=== PATIENT | female | born 1965 | race Caucasian/White ===

== ENCOUNTER 2021-10-13 08:50 | Emergency (ER) | payer OTHER ==
[~2021-10-13] VITALS: Ht 170 cm; Wt 72.0 kg
--- NOTE | 2021-10-13 09:38 | ED Cough/URI ---
General Chief Complaint: COVID19 Suspect/Confirmed Stated Complaint: COUGH,FEVER Exam Limitations: no limitations (ISRAEL ARROYO STUDENT) Source: patient (ABRAHAM SCHULER MD) History of Present Illness Date Seen by Provider: Oct 13, 2021 Time Seen by Provider: 09:30 Initial Comments Patient is a 56yoF who presents with chief complaint of body aches, sore throat, mild headache, cough with pain and phlegm, and decreased appetite. She began feeling bad on Tuesday and felt like she had a mild fever that evening but not since then. She is afebrile in ED today. Patient denies congestion, SOA, N/V and diarrhea. She does not like taking medication and hasn't taken anything OTC. She is able to sleep well, keep liquids down but has not had much of an appetite. Vaccinated for Covid over a year ago and has not had booster. Patient says Covid infection has been going around work. She is a former smoker and quit >10 years ago. She previously was medicated for HTN but hasn't taken any medicine for 4-5 years and her PCP retired 3 years ago. She is hypertensive today 160s/140s and expressed interest in establishing with new PCP. Timing/Duration: constant Severity/Quality: mild Associated Symptoms: chest pain/soreness, cough, headache, muscle aches, sore throat (ISRAEL ARROYO STUDENT) Allergies and Home Medications Allergies Coded Allergies: No Known Drug Allergies (Unverified , 10/13/21) Patient Home Medication List Home Medication List Reviewed: Yes (ABRAHAM SCHULER MD) Atenolol (Atenolol) 25 Mg Tablet, 25 MG PO DAILY Prescribed by: ABRAHAM SCHULER on 10/13/21 7693 Review of Systems Review of Systems Constitutional: No chills, No diaphoresis, No fever; malaise EENTM: throat pain; No blurred vision, No nose congestion Respiratory: cough; No hemoptysis; phlegm; No wheezing Cardiovascular: No chest pain, No edema, No palpitations Gastrointestinal: No abdominal pain, No constipation, No diarrhea; loss of appetite; No melena, No nausea, No vomiting Genitourinary: No dysuria, No frequency, No hematuria Musculoskeletal: No joint pain; muscle pain; No muscle weakness Skin: no symptoms reported Psychiatric/Neurological: No Symptoms Reported Hematologic/Lymphatic: No Symptoms Reported Immunological/Allergic: no symptoms reported ([employer]) Past Sddwxrb-Ypfvik-Hlomni Hx Patient Social History Tobacco Use?: No Smoking Status: Former Smoker Use of E-Cig and/or Vaping dev: No Substance use?: No Alcohol Use?: No ([employer]) Immunizations Up To Date Influenza Vaccine Up-to-Date: Yes; Up-to-Date ([employer]) Past Medical History Surgeries: No ([employer]) Physical Exam Vital Signs - First Documented 10/13/21 09:00 Temp 36.9 Pulse 96 Resp 16 B/P (MAP) 194/145 (161) Pulse Ox 98 O2 Delivery Room Air (ABRAHAM SCHULER MD) Capillary Refill : ([employer]) Height: '" Weight: lbs. oz. 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, no motor/sensory deficits, alert, normal mood/affect, oriented x 3 Skin: normal color, warm/dry Lymphatic: no adenopathy ([employer]) Progress/Results/Core Measures Suspected Sepsis SIRS Temperature: Pulse: Respiratory Rate: Blood Pressure / Mean: ([employer]) Results/Orders Lab Results Laboratory Tests Test 10/13/21 09:44 10/13/21 10:35 Range/Units Influenza Type A (RT-PCR) Not Detected Not Detecte Influenza Type B (RT-PCR) Not Detected Not Detecte SARS-CoV-2 RNA (RT-PCR) Detected H Not Detecte White Blood Count 5.0 4.3-11.0 10^3/uL Red Blood Count 5.27 H 3.80-5.11 10^6/uL Hemoglobin 16.6 H 11.5-16.0 g/dL Hematocrit 47 35-52 % Mean Corpuscular Volume 89 80-99 fL Mean Corpuscular Hemoglobin 32 25-34 pg Mean Corpuscular Hemoglobin Concent 35 32-36 g/dL Red Cell Distribution Width 12.2 10.0-14.5 % Platelet Count 288 130-400 10^3/uL Mean Platelet Volume 10.2 9.0-12.2 fL Immature Granulocyte % (Auto) 0 % Neutrophils (%) (Auto) 54 42-75 % Lymphocytes (%) (Auto) 27 12-44 % Monocytes (%) (Auto) 16 H 0-12 % Eosinophils (%) (Auto) 2 0-10 % Basophils (%) (Auto) 1 0-10 % Neutrophils # (Auto) 2.7 1.8-7.8 10^3/uL Lymphocytes # (Auto) 1.4 1.0-4.0 10^3/uL Monocytes # (Auto) 0.8 0.0-1.0 10^3/uL Eosinophils # (Auto) 0.1 0.0-0.3 10^3/uL Basophils # (Auto) 0.0 0.0-0.1 10^3/uL Immature Granulocyte # (Auto) 0.0 0.0-0.1 10^3/uL Sodium Level 142 135-145 MMOL/L Potassium Level 3.4 L 3.6-5.0 MMOL/L Chloride Level 105 98-107 MMOL/L Carbon Dioxide Level 22 21-32 MMOL/L Anion Gap 15 H 5-14 MMOL/L Blood Urea Nitrogen 7 7-18 MG/DL Creatinine 0.81 0.60-1.30 MG/DL Estimat Glomerular Filtration Rate 86 BUN/Creatinine Ratio 9 Glucose Level 126 H 70-105 MG/DL Calcium Level 9.8 8.5-10.1 MG/DL (ABRAHAM SCHULER MD) My Orders Orders - ABRAHAM SCHULER MD Covid 19 Inhouse Test (10/13/21 09:39) Influenza A And B By Pcr (10/13/21 09:39) Isolation Central Supply Req (10/13/21 09:39) Ed Iv/Invasive Line Start (10/13/21 09:39) Cbc With Automated Diff (10/13/21 09:39) Basic Metabolic Panel (10/13/21 09:39) Ekg Tracing (10/13/21 09:39) Chest 1 View, Ap/Pa Only (10/13/21 09:39) Metoprolol Tartrate Injection (Lopressor (10/13/21 11:30) Metoprolol Tartrate Injection (Lopressor (10/13/21 12:15) (ABRAHAM SCHULER MD) Medications Given in ED Current Medications Medications Dose Ordered Sig/Kierra Route Start Time Stop Time Status Last Admin Dose Admin Metoprolol Tartrate 5 mg ONCE ONCE IV 10/13/21 11:30 10/13/21 11:31 DC 10/13/21 11:35 5 MG Metoprolol Tartrate 5 mg ONCE ONCE IV 10/13/21 12:15 10/13/21 12:16 DC 10/13/21 12:20 5 MG (ABRAHAM SCHULER MD) Vital Signs/I&O 10/13/21 10/13/21 09:00 13:01 Temp 36.9 Pulse 96 70 Resp 16 16 B/P (MAP) 194/145 (161) 175/116 Pulse Ox 98 98 O2 Delivery Room Air Room Air (ABRAHAM SCHULER MD) Vital Signs/I&O Capillary Refill : (ISRAEL ARROYO MED STUDENT) Progress Note : Time: 12:13 Progress Note Patient seen and evaluated, 56yo with a chief complaint of Covid symptoms, fatigue, generally not feeling well. Is Covid vaccinated. Has not taken an ything for her symptoms. Has basically not seen a doctor for the last 5 years. Used to take medications for hypertension but took her self off of them. Currently does not have a primary care physician. She is noted to be quite hypertensive. Diastolics greater than 115. Basic laboratory studies were obtained as well as an EKG. All of her labs are reviewed and are reassuring. Patient is treated with Lopressor 5 mg x 2 with minimal response in her blood pressure. Will put her back on her prior blood pressure medication, atenolol 25 mg daily with strict instructions to follow-up with her primary care physician. She verbalized understanding. Remains asymptomatic of her hypertension. All questions are sought and answered. Covid quarantine precautions given. Off work until Tuesday. Physical exam generally unremarkable. (ABRAHAM SCHULER MD) ECG Initial ECG Impression Date: Oct 13, 2021 Initial ECG Impression Time: 09:53 Initial ECG Rate: 79 Initial ECG Rhythm: Normal Sinus Initial ECG Intervals: Normal Initial ECG Impression: Normal, Nonspecific Changes (ABRAHAM SCHULER MD) Diagnostic Imaging Diagonstic Imaging: Xray Plain Films/CT/US/NM/MRI: chest Comments [facility]. [place], [place] NAME: [facility] REC#: [id number] PT STATUS: REG ER : [id number] PHYSICIAN: ABRAHAM SCHULER MD ADMIT DATE: 10/13/21/ER Signed Date of Exam:10/13/21 CHEST 1 VIEW, AP/PA ONLY INDICATION: Cough, high blood pressure. Body aches. EXAMINATION: Chest, 10/13/2021. FINDINGS: Single view chest. The cardiomediastinal silhouette is unremarkable. The pulmonary vasculature is within normal limits. The lungs and pleural spaces are clear. IMPRESSION: No evidence of an acute cardiopulmonary process. Dictated by: Dictated on workstation # [id number] Dict: 10/13/21 1101 Trans: 10/13/21 1106 [id number] Interpreted by: MITUL HAHN MD Electronically signed by: MITUL HAHN MD 10/13/21 1106 (ABRAHAM SCHULER MD) Departure Impression Primary Impression: COVID-19 Additional Impression: Hypertensive urgency Disposition: HOME, SELF-CARE Condition: Stable Departure-Patient Inst. Decision time for Depature: 12:24 (ABRAHAM SCHULER MD) Referrals: [facility] [place] PHYSICIAN (PCP) Primary Care Physician Patient Instructions: High Blood Pressure in Adults, LOCAL PHYSICIAN LIST Add. Discharge Instructions: Start taking your atenolol, 25 mg daily again. Please watch your salt intake as this can cause fluid retention and increased blood pressure. Cvcv-[id number] ibuprofen and Tylenol as needed for body aches and temperature over 100.4. You will need to quarantine for a total of 5 days from symptom onset at home. Then 5 days of masking. You can return to work on Tuesday of this week. As long as her symptoms are improving. Come back to the emergency department for any worsening symptoms, shortness of breath or other emergent concerns. I have provided you a list of local physicians to obtain a primary care physician. It is very important that you have follow-up for your blood pressure. Scripts Atenolol (Atenolol) 25 Mg Tablet 25 MG PO DAILY for 30 Days, #30 TAB Prov: ABRAHAM SCHULER MD 10/13/21 Work/School Note: Work Release Form Date Seen in the Emergency Department: Oct 13, 2021 Return to Work: Oct 16, 2021 ISRAEL ARROYO MED STUDENT Oct 13, 2021 09:38 ABRAHAM SCHULER MD Oct 13, 2021 12:15
[2021-10-13 10:46] LABS: BASOPHILS % (AUTO) 1 % (0-10); EOSINOPHILS # (AUTO) 0.1 10^3/uL (0.0-0.3); EOSINOPHILS % (AUTO) 2 % (0-10); HEMATOCRIT 47 % (35-52); HEMOGLOBIN 16.6 g/dL (11.5-16.0); LYMPHOCYTES # (AUTO) 1.4 10^3/uL (1.0-4.0); LYMPHOCYTES % (AUTO) 27 % (12-44); MEAN CORPUSCULAR HEMOGLOBIN 32 pg (25-34); MEAN CORPUSCULAR HGB CONC 35 g/dL (32-36); MEAN CORPUSCULAR VOLUME 89 fL (80-99); MEAN PLATELET VOLUME 10.2 fL (9.0-12.2); MONOCYTES # (AUTO) 0.8 10^3/uL (0.0-1.0); MONOCYTES % (AUTO) 16 % (0-12); NEUTROPHILS # (AUTO) 2.7 10^3/uL (1.8-7.8); NEUTROPHILS % (AUTO) 54 % (42-75); PLATELET COUNT 288 10^3/uL (130-400)
[2021-10-13 10:58] LABS: POTASSIUM 3.4 MMOL/L (3.6-5.0)
[2021-10-13 11:00] LABS: CALCIUM 9.8 MG/DL (8.5-10.1)
[2021-10-13 11:04] LABS: CREATININE SERUM 0.81 MG/DL (0.60-1.30)
--- NOTE | 2021-10-13 11:04 | Diagnostic Imaging Report ---
INDICATION: Cough, high blood pressure. Body aches. EXAMINATION: Chest, 10/13/2021. FINDINGS: Single view chest. The cardiomediastinal silhouette is unremarkable. The pulmonary vasculature is within normal limits. The lungs and pleural spaces are clear. IMPRESSION: No evidence of an acute cardiopulmonary process. Dictated by: Dictated on workstation # [id number]
[2021-10-13] MEDS ORDERED: meTOprolol 5 MG/5 ML (LOPRESSOR) VIAL IV ONE ×2 (11:30→12:15)
[2021-10-13] MEDS ORDERED: ATEN25TA PO (12:45)
[2021-10-13 13:01] VITALS: BP 175/116
== END 2021-10-13 13:01 | disposition home or self-care (01) ==
LOC: ER 08:53
DX: U07.1 COVID-19 (principal); I16.0 Hypertensive urgency; Z87.891 Personal history of nicotine dependence
CPT/HCPCS: 36415; 71045; 80048; 85025; 87636; 93005

== ENCOUNTER 2022-09-02 00:34 | Emergency (ER) | payer OTHER ==
[~2022-09-02] VITALS: Ht 170 cm; Wt 72.6 kg
[~2022-09-02 00:34] MED LIST: ATEN25TA PO
--- NOTE | 2022-09-02 00:41 | ED Psychosocial ---
General Stated Complaint: OVERDOSE Source: patient Exam Limitations: no limitations (MIKE CARMONA DO) History of Present Illness Date Seen by Provider: Sep 02, 2022 Time Seen by Provider: 00:43 Initial Comments 57-year-old female presents to the emergency department today via EMS. She reportedly took 19-20 of her 100mg losartan tablets in an attempt to harm herself. She states "I just gave up." She tells me that she has been planning this for couple weeks so she stops taking her blood pressure medicine regularly so she could store it up. She has no medical concerns at this time. Denies any illicit substance use or coingestions. She has never had an attempt to harm herself in the past and has never had inpatient psychiatric treatment per her report. (MIKE CARMONA DO) Allergies and Home Medications Allergies Coded Allergies: No Known Drug Allergies (Unverified , 10/13/21) Patient Home Medication List Home Medication List Reviewed: Yes (MIKE CARMONA DO) Losartan Potassium (Losartan Potassium) 100 Mg Tablet, 100 PO DAILY, (Reported) Entered as Reported by: NGUYEN MOTA on 09/02/22 1331 Last Action: Edited Discontinued Medications Atenolol (Atenolol) 25 Mg Tablet, 25 MG PO DAILY Discontinued Reason: No Longer Taking Prescribed by: ABRAHAM SCHULER on 10/13/21 1245 Last Action: Discontinued Review of Systems Constitutional: no symptoms reported EENTM: no symptoms reported Respiratory: no symptoms reported Cardiovascular: no symptoms reported Gastrointestinal: no symptoms reported Genitourinary: no symptoms reported Musculoskeletal: no symptoms reported Skin: no symptoms reported Psychiatric/Neurological: Depressed (MIKE CARMONA DO) Past Dwbigcm-Xassow-Janxmf Hx Patient Social History Tobacco Use?: No Use of E-Cig and/or Vaping dev: No Substance use?: No Alcohol Use?: No (MIKE CARMONA DO) Immunizations Up To Date Second COVID19 Vaccination Arun: 01/07 (MIKE CARMONA DO) Past Medical History Surgeries: No (MIKE CARMONA DO) Family Medical History Reviewed Nursing Family Hx (MIKE CARMONA DO) No Pertinent Family Hx (MIKE CARMONA DO) Physical Exam Vital Signs - First Documented 09/02/22 00:37 Temp 36.6 Pulse 112 Resp 16 B/P (MAP) 203/143 (163) Pulse Ox 96 O2 Delivery Room Air (ABRAHAM SCHULER MD) Capillary Refill : (MIKE CARMONA DO) Height, Weight, BMI Height: '" Weight: lbs. oz. kg; 24.00 BMI Method: General Appearance: WD/WN, no apparent distress HEENT: PERRL/EOMI, normal ENT inspection, pharynx normal Neck: non-tender, full range of motion, supple, normal inspection Respiratory: chest non-tender, lungs clear, normal breath sounds, no respiratory distress, no accessory muscle use Cardiovascular: regular rate, rhythm, no edema, no gallop, no JVD, no murmur Gastrointestinal: normal bowel sounds, non tender, soft, no organomegaly, no pulsatile mass Extremities: normal range of motion, non-tender, normal inspection, no pedal edema, no calf tenderness, normal capillary refill Neurologic/Psychiatric: alert, oriented x 3 Appearance/Memory: appropriate appearance, other (Tearful) Behavior/Eye Contact: cooperative Skin: normal color, warm/dry Lymphatic: no adenopathy (MIKE CARMONA DO) Progress/Results/Core Measures Results/Orders Lab Results Laboratory Tests Test 09/02/22 00:50 09/02/22 00:52 09/02/22 00:55 Range/Units Urine Color YELLOW Urine Clarity CLEAR Urine pH 6.5 5-9 Urine Specific [place] 1.010 L 1.016-1.022 Urine Protein NEGATIVE NEGATIVE Urine Glucose (UA) NEGATIVE NEGATIVE Urine Ketones NEGATIVE NEGATIVE Urine Nitrite NEGATIVE NEGATIVE Urine Bilirubin NEGATIVE NEGATIVE Urine Urobilinogen 0.2 < = 1.0 MG/DL Urine Leukocyte Esterase NEGATIVE NEGATIVE Urine RBC (Auto) NEGATIVE NEGATIVE Urine RBC NONE /HPF Urine WBC RARE /HPF Urine Squamous Epithelial Cells 2-5 /HPF Urine Crystals NONE /LPF Urine Bacteria TRACE /HPF Urine Casts NONE /LPF Urine Mucus NEGATIVE /LPF Urine Culture Indicated NO Urine Opiates Screen NEGATIVE NEGATIVE Urine Oxycodone Screen NEGATIVE NEGATIVE Urine Methadone Screen NEGATIVE NEGATIVE Urine Propoxyphene Screen NEGATIVE NEGATIVE Urine Barbiturates Screen NEGATIVE NEGATIVE Ur Tricyclic Antidepressants Screen NEGATIVE NEGATIVE Urine Phencyclidine Screen NEGATIVE NEGATIVE Urine Amphetamines Screen NEGATIVE NEGATIVE Urine Methamphetamines Screen NEGATIVE NEGATIVE Urine Benzodiazepines Screen NEGATIVE NEGATIVE Urine Cocaine Screen NEGATIVE NEGATIVE Urine Cannabinoids Screen NEGATIVE NEGATIVE SARS-CoV-2 RNA (RT-PCR) Not Detected Not Detecte White Blood Count 9.4 4.3-11.0 10^3/uL Red Blood Count 5.16 H 3.80-5.11 10^6/uL Hemoglobin 16.0 11.5-16.0 g/dL Hematocrit 46 35-52 % Mean Corpuscular Volume 89 80-99 fL Mean Corpuscular Hemoglobin 31 25-34 pg Mean Corpuscular Hemoglobin Concent 35 32-36 g/dL Red Cell Distribution Width 12.2 10.0-14.5 % Platelet Count 291 130-400 10^3/uL Mean Platelet Volume 10.2 9.0-12.2 fL Immature Granulocyte % (Auto) 0 % Neutrophils (%) (Auto) 74 42-75 % Lymphocytes (%) (Auto) 17 12-44 % Monocytes (%) (Auto) 8 0-12 % Eosinophils (%) (Auto) 1 0-10 % Basophils (%) (Auto) 1 0-10 % Neutrophils # (Auto) 7.0 1.8-7.8 10^3/uL Lymphocytes # (Auto) 1.6 1.0-4.0 10^3/uL Monocytes # (Auto) 0.7 0.0-1.0 10^3/uL Eosinophils # (Auto) 0.1 0.0-0.3 10^3/uL Basophils # (Auto) 0.1 0.0-0.1 10^3/uL Immature Granulocyte # (Auto) 0.0 0.0-0.1 10^3/uL Sodium Level 141 135-145 MMOL/L Potassium Level 3.6 3.6-5.0 MMOL/L Chloride Level 105 98-107 MMOL/L Carbon Dioxide Level 20 L 21-32 MMOL/L Anion Gap 16 H 5-14 MMOL/L Blood Urea Nitrogen 14 7-18 MG/DL Creatinine 1.06 0.60-1.30 MG/DL Estimat Glomerular Filtration Rate 62 BUN/Creatinine Ratio 13 Glucose Level 206 H 70-105 MG/DL Calcium Level 10.4 H 8.5-10.1 MG/DL Corrected Calcium 8.5-10.1 MG/DL Total Bilirubin 0.8 0.1-1.0 MG/DL Aspartate Amino Transf (AST/SGOT) 48 H 5-34 U/L Alanine Aminotransferase (ALT/SGPT) 82 H 0-55 U/L Alkaline Phosphatase 90 40-136 U/L Total Protein 8.5 H 6.4-8.2 GM/DL Albumin 4.7 H 3.2-4.5 GM/DL Salicylates Level < 5.0 L 5.0-20.0 MG/DL Acetaminophen Level < 10 L 10-30 UG/ML Serum Alcohol < 10 <10 MG/DL (ABRAHAM SCHULER MD) My Orders Orders - ABRHAAM SCHULER MD General/Regular (09/02/22 Breakfast) (ABRAHAM SCHULER MD) Progress Progress Note : Time: 17:37 Progress Note notified by RN the patient had acceptance at [facility] psychiatric facility. [facility] to transport her. She has been resting comfortably throughout her ED stay. No complaints or concerns. She was accepted by Dr. Ruelas. (ABRAHAM SCHULER MD) Departure Impression Primary Impression: Suicidal ideation Disposition: XFER SHT-TRM HOSP Condition: Stable Transfer Transfer Reason: Exceeds level of care Time Spoke to Accepting Phy: 17:00 Transfer Progress Notes acceptance given to Nguyen Mota RN by [facility] staff on behalf of Dr Ruelas Transfer Time: 17:35 Transfer Facility: [facility] Method of Transfer: Private Vehicle (ABRAHAM SCHULER MD) Departure-Patient Inst. Referrals: NO,LOCAL PHYSICIAN (PCP/Family) Primary Care Physician MIKE CARMONA DO Sep 02, 2022 00:41 ABRAHAM SCHULER MD Sep 02, 2022 17:38
[2022-09-02 01:05] LABS: BASOPHILS # (AUTO) 0.1 10^3/uL (0.0-0.1); BASOPHILS % (AUTO) 1 % (0-10); EOSINOPHILS # (AUTO) 0.1 10^3/uL (0.0-0.3); EOSINOPHILS % (AUTO) 1 % (0-10); HEMATOCRIT 46 % (35-52); LYMPHOCYTES # (AUTO) 1.6 10^3/uL (1.0-4.0); LYMPHOCYTES % (AUTO) 17 % (12-44); MEAN CORPUSCULAR HEMOGLOBIN 31 pg (25-34); MEAN CORPUSCULAR HGB CONC 35 g/dL (32-36); MEAN CORPUSCULAR VOLUME 89 fL (80-99); MEAN PLATELET VOLUME 10.2 fL (9.0-12.2); MONOCYTES # (AUTO) 0.7 10^3/uL (0.0-1.0); MONOCYTES % (AUTO) 8 % (0-12); NEUTROPHILS % (AUTO) 74 % (42-75); PLATELET COUNT 291 10^3/uL (130-400); WHITE BLOOD COUNT 9.4 10^3/uL (4.3-11.0)
[2022-09-02 01:15] LABS: CHLORIDE 105 MMOL/L (98-107); POTASSIUM 3.6 MMOL/L (3.6-5.0); SODIUM 141 MMOL/L (135-145)
[2022-09-02 01:16] LABS: ALBUMIN 4.7 GM/DL (3.2-4.5)
[2022-09-02 01:17] LABS: BILIRUBIN,URINE NEGATIVE (NEGATIVE); CLARITY,URINE CLEAR; COLOR,URINE YELLOW; GLUCOSE, URINE (UA) NEGATIVE (NEGATIVE); KETONES,URINE NEGATIVE (NEGATIVE); LEUKOCYTE ESTERASE ,URINE NEGATIVE (NEGATIVE); NITRITE,URINE NEGATIVE (NEGATIVE); PH,URINE 6.5 (5-9); PROTEIN,URINE NEGATIVE (NEGATIVE)
[2022-09-02 01:17] LABS: CALCIUM 10.4 MG/DL (8.5-10.1)
[2022-09-02 01:18] LABS: GLUCOSE 206 MG/DL (70-105); TOTAL PROTEIN 8.5 GM/DL (6.4-8.2)
[2022-09-02 01:18] LABS: AMPHETAMINE SCREEN, URINE NEGATIVE (NEGATIVE); BARBITURATE SCREEN URINE NEGATIVE (NEGATIVE); BENZODIAZEPINES SCREEN URINE NEGATIVE (NEGATIVE); CANNABINOID SCREEN, URINE NEGATIVE (NEGATIVE); COCAINE SCREEN URINE NEGATIVE (NEGATIVE); METHADONE STAT NEGATIVE (NEGATIVE); OPIATE SCREEN URINE NEGATIVE (NEGATIVE); OXYCODONE STAT NEGATIVE (NEGATIVE); PROPOXYPHENE STAT NEGATIVE (NEGATIVE); TRICYCLIC ANTIDEPRESSANTS SCRE NEGATIVE (NEGATIVE)
[2022-09-02 01:19] LABS: CARBON DIOXIDE 20 MMOL/L (21-32)
[2022-09-02 01:20] LABS: BILIRUBIN,TOTAL 0.8 MG/DL (0.1-1.0)
[2022-09-02 01:22] LABS: ALKALINE PHOSPHATASE 90 U/L (40-136); CREATININE SERUM 1.06 MG/DL (0.60-1.30); GFR ESTIMATED 62
[2022-09-02 01:23] LABS: BUN/CREATININE RATIO 13
[2022-09-02 01:24] LABS: BACTERIA,URINE TRACE /HPF; WBC,URINE RARE /HPF
[2022-09-02 01:24] LABS: ACETAMINOPHEN < 10 UG/ML (10-30)
[2022-09-02 01:25] LABS: ALANINE AMINOTRANSFERASE 82 U/L (0-55); SALICYLATE < 5.0 MG/DL (5.0-20.0)
[2022-09-02] MEDS ORDERED: LOSA100T57 PO (13:31)
[2022-09-02 17:35] VITALS: BP 161/90
== END 2022-09-02 17:35 ==
LOC: EDUNIT# 00:34 → ER 00:36
DX: R45.851 Suicidal ideations (principal); Z20.822 Contact with and (suspected) exposure to COVID-19
CPT/HCPCS: 80053; 80306; 81000; 85025; 87636; 93005; 99283; G0480 ×3; 36415; 80320; 80329